=== PATIENT | female | born 1990 | race Caucasian/White ===

== ENCOUNTER 2017-01-03 13:00 | Inpatient (IN) | payer OTHER ==
--- NOTE | ~2017-01-03 | PN ---
Unit #: [id number] #: [id number] Patient: PRETTY CLOUD [id number] [facility] [address] [place] [address] [id number] MR#: [id number] NAME: PRETTY CLOUD ROOM: P204 Age: 26 Sex: F Admission Date: 01/03/2017 : 1990 Attending Physician: Adalberto Pisano M.D. Admitting Physician: Adalberto Pisano M.D. Primary Care Physician: Generic Doctor Not In System [facility] PROGRESS NOTES DATE OF SERVICE: 01/05/2017 SUBJECTIVE Ms. Cloud is a 26-year-old white female, who was seen today and chart was reviewed and case was discussed with the staff. She has been anxious, withdrawn, and rather seclusive to herself has been taking the medications and was tolerating them fairly well with no reported side effects. MENTAL STATUS EXAMINATION Young white female who was casually dressed with a fair personal hygiene, appears to be in no acute distress or discomfort. She was awake and alert on interaction with intact orientation. Her mood was anxious with a congruent affect. She denies any suicidal or homicidal ideations. Her insight and judgment remain slightly impaired. TREATMENT PLAN 1. We will continue on her current medications and treatment protocol. We will monitor her response to medications and make further adjustments as needed. 2. We will continue to follow up. Dictated by... Enrique Cleaning/kierra TD: 01/07/2017 03:08 JOB #: [id number] [facility] PROGRESS NOTES Page 1 of 1 X Adalberto Pisano MD PROGRESS NOTE
--- NOTE | ~2017-01-03 | PA ---
Unit #: [id number] #: [id number] Patient: PRETTY AGUILERA [id number] [facility] [address] [place] [address] [id number] MR#: [id number] NAME: PRETTY AGUILERA ROOM: P212 Age: 26 Sex: F Admission Date: 01/03/2017 : 1990 Date of Assessment: Attending Physician: Adalberto Pisano M.D. Admitting Physician: Adalberto Pisano M.D. Primary Care Physician: Generic Doctor Not In System PSYCHIATRIC ASSESSMENT DATE OF SERVICE 01/03/2017. IDENTIFYING DATA Ms. Aguilera is a 26-year-old single white female, who is a resident of [place], [place], and is known to us from previous encounter, was self-referred to the hospital on a voluntary basis. CHIEF COMPLAINT "I don't want to do this anymore. I need help." HISTORY OF PRESENT ILLNESS Ms. Aguilera is a 26-year-old white female with long history of alcohol dependence, who was self-referred to the hospital stating she has been on a binge and she has relapsed and "I need help. I have to do it. It is unhealthy. I drink a pint or more a day." The patient reports she recently lost her job and that she has completed only through the 8th grade and that she lives with her best friend and reports having no income. The patient also reports that her relationships are strained due to her continued alcohol use and reports that she can be a mean drunk and reports that she feels helpless due to her alcohol use and does report increasing depression, anxiety, irritability, feelings of hopelessness and helplessness, and suicidal ideations and as such, recommendation for inpatient level of care for safety and stabilization was made and the patient was transferred to us. SUBSTANCE ABUSE HISTORY The patient reports history of alcohol dependence and has been drinking since she was 14 years old and currently has been drinking a pint or more of whiskey on a daily basis. PAST PSYCHIATRIC HISTORY The patient has had history of inpatient chemical dependency treatment at [facility] and currently she is not active in any treatment program, is not seeing a psychiatrist, and is not taking any psychotropic medications. PAST MEDICAL HISTORY Psoriasis. ALLERGIES No known medication allergies. Unit #: [id number] #: [id number] Patient: PRETTY AGUILERA CURRENT MEDICATIONS None. PERSONAL AND SOCIAL HISTORY A 26-year-old white female, who reports that she is single, unemployed, and lives with a roommate and has poor social support system. MENTAL STATUS EXAMINATION Young white female who was casually dressed with fair personal hygiene, appears to be in no acute distress or discomfort. She was awake and alert on interaction with intact orientation to time, place, and person. Her mood was anxious and depressed with a congruent affect. Her speech was slow and restricted in content. She denies any suicidal or homicidal ideations and also denies any auditory or visual hallucinations. Her insight and judgment remain significantly impaired. DIAGNOSTIC IMPRESSION Psychiatric: Alcohol dependence, moderate and acute withdrawals; alcohol-induced mood disorder. Medical: None. Stressors: Moderate psychosocial stressors. TREATMENT PLAN 1. The patient has presented with history of mood disorder and substance abuse and will need inpatient hospitalization for safety and stabilization. We will start her back on her home medications. We will monitor response and make further adjustments as needed. 2. Supportive therapy was provided to the patient. ESTIMATED LENGTH OF STAY 5 to 7 days. ABILITY TO HELP SELF Limited. WILLINGNESS TO HELP SELF The patient appears to be willing to help self. STRENGTHS 1. Communicative. 2. Cooperative. PROBLEMS 1. Chronic dysphoric symptoms. 2. Poor social support system. DISCHARGE CRITERIA This will be contingent upon the patient's ability to show resolution of her depression and anxiety as well as her ability to stay safe to herself, particularly after discharge from the hospital. Dictated by... Enrique Cleaning/kierra TD: 01/04/2017 23:30 Unit #: [id number] #: [id number] Patient: PRETTY AGUILERA JOB #: [id number] PSYCHIATRIC ASSESSMENT Page 1 of 1 X Adalberto Pisano MD PSYCHIATRIC ASSESSMENT
--- NOTE | ~2017-01-03 | DS ---
Unit #: [id number] #: [id number] Patient: PRETTY CLOUD [id number] [facility] [address] [place] [address] [id number] I MR#: [id number] NAME: PRETTY CLOUD ROOM: P204 Age: 26 Sex: F Admission Date: 01/03/2017 : 1990 Discharge Date: 01/10/2017 Attending Physician: Adalberto Pisano M.D. Primary Care Physician: Generic Doctor Not In System DISCHARGE SUMMARY JOB NOTE: ADDENDUM ADDENDUM Ms. Cloud was initially scheduled to be discharged on 01/08/2017, however, the patient was seen to be exhibiting some acute psychosis with paranoia and delusional behavior and appears to be almost in delirium tremens kind of face and as such, her discharge planning was cancelled and medications were maintained and once she started feeling better and she was not seen to have any acute psychosis and as such, it was decided she will be discharged home. DISCHARGE MEDICATIONS Effexor XR 75 mg at bedtime for depression and BuSpar 10 mg b.i.d. for anxiety. DISCHARGE CONDITION Stable. PROGNOSIS Fair. Dictated by... Enrique Cleaning/kierra TD: 01/10/2017 22:47 JOB #: [id number] DISCHARGE SUMMARY Page 1 of 1 X Adalberto Pisano MD X DISCHARGE SUMMARY
--- NOTE | ~2017-01-03 | PN ---
Unit #: [id number] #: [id number] Patient: PRETTY CLOUD [id number] [facility] [address] [place] [address] [id number] I MR#: [id number] NAME: PRETTY CLOUD ROOM: P212 Age: 26 Sex: F Admission Date: 01/03/2017 : 1990 Attending Physician: Adalberto Pisano M.D. Admitting Physician: Adalberto Pisano M.D. Primary Care Physician: Generic Doctor Not In System [facility] PROGRESS NOTES DATE 01/06/2017 DISCUSSION Ms. Cloud is a 26-year-old white female who was seen today and chart was reviewed and case was discussed with the staff. She appears to be doing somewhat better though still has been in bed in some distress although she was maintaining a positive attitude and stated that she feels she is coming out of the detox and that she would like the underlying issues particularly the depression and anxiety and panic to be addressed and would like the medications to be initiated tomorrow and is willing to come to the outpatient treatment program. She also informed me that she has a court date coming up tomorrow early in the morning. MENTAL STATUS EXAMINATION Young white female who was casually dressed with fair personal hygiene, appears to be in no acute distress or discomfort. She was awake and alert on interaction with intact orientation. Her mood was anxious with congruent affect. She denies any suicidal or homicidal ideations. Her insight and judgement remains slightly impaired. TREATMENT PLAN 1. We will continue her on her current medications and treatment protocol. We will add Effexor and BuSpar to help with depression and anxiety. 2. We will continue to follow up. Dictated by... Enrique Cleaning/ricardo TD: 01/07/2017 00:53 JOB #: [id number] Unit #: [id number] #: [id number] Patient: PRETTY CLOUD [facility] PROGRESS NOTES Page 1 of 1 X Adalberto Pisano MD X PROGRESS NOTE
--- NOTE | ~2017-01-03 | DS ---
Unit #: [id number] #: [id number] Patient: PRETTY CLOUD [id number] [facility] [address] [place] [address] [id number] MR#: [id number] NAME: PRETTY CLOUD. ROOM: P204 Age: 26 Sex: F Admission Date: 01/03/2017 : 1990 Discharge Date: 01/07/2017 Attending Physician: Adalberto Pisano M.D. Primary Care Physician: Generic Doctor Not In System DISCHARGE SUMMARY IDENTIFYING DATA Ms. Cloud is a 26-year-old single white female who is a resident of [place], [place] and is known to us from previous encounters and was self-referred to the hospital on a voluntary basis. DISCHARGE DIAGNOSES Psychiatric: Alcohol dependence, moderate and acute withdrawals; alcohol-induced mood disorder. Medical: None. Stressors: Moderate psychosocial stressors. HISTORY OF PRESENT ILLNESS Please see initial psychiatric evaluation for details. PAST PSYCHIATRIC HISTORY Please see initial psychiatric evaluation for details. PAST MEDICAL HISTORY Please see initial psychiatric evaluation for details. HOSPITAL COURSE The [facility] and was oriented to the hospital environment. Routine p.r.n. medications were initiated, and she was started back on her home medications and alcohol detox protocol was initiated and she was closely monitored. She was initially having complicated detox and was vomiting and was seclusive to herself and unable to function, though she was able to come out of the detox without any complication and was expressing significant anxiety and depression and medications to be adjusted, and Effexor and BuSpar were initiated to help with her mood and she was closely monitored. She was taking the medications regularly and was tolerating them fairly well and was able to show a decent therapeutic response, and as such, it was decided that she will be discharged home and will continue treatment on an outpatient basis. DISCHARGE MEDICATIONS Effexor XR 75 mg at bedtime for depression and BuSpar 10 mg b.i.d. for anxiety. DISCHARGE CONDITION Stable. PROGNOSIS Fair. Unit #: [id number] #: [id number] Patient: PRETTY CLOUD Dictated by... Adalberto Pisano M.D. IAA/modl TD: 01/07/2017 06:35 JOB #: [id number] DISCHARGE SUMMARY Page 1 of 1 X Adalberto Pisano MD DISCHARGE SUMMARY
--- NOTE | ~2017-01-03 | PN ---
Unit #: [id number] #: [id number] Patient: PRETTY CLOUD [id number] [facility] [address] [place] [address] [id number] I MR#: [id number] NAME: PRETTY CLOUD ROOM: P212 Age: 26 Sex: F Admission Date: 01/03/2017 : 1990 Attending Physician: Adalberto Pisano M.D. Admitting Physician: Adalberto Pisano M.D. Primary Care Physician: Generic Doctor Not In System [facility] PROGRESS NOTES DATE OF SERVICE: 01/04/2017 SUBJECTIVE Ms. Cloud is a 26-year-old white female, who was seen today and chart was reviewed and case was discussed with the staff. She was seen to be anxious, withdrawn, taking the medications and was tolerating them fairly well with no reported side effects. MENTAL STATUS EXAMINATION Young white female, who was casually dressed with fair personal hygiene, appears to be in no acute distress or discomfort. She was awake and alert with intact orientation. Her mood was anxious with congruent affect. She denies any suicidal or homicidal ideations. Her insight and judgment remain slightly impaired. TREATMENT PLAN 1. We will continue her on her current treatment protocol. We will monitor her response and maintain on detox protocol. 2. We will continue to follow up. Dictated by... Enrique Cleaning/kierra TD: 01/04/2017 23:32 JOB #: [id number] [facility] PROGRESS NOTES Page 1 of 1 X Adalberto Pisano MD PROGRESS NOTE
--- NOTE | ~2017-01-03 | PN ---
Unit #: [id number] #: [id number] Patient: PRETTY CLOUD [id number] [facility] [address] [place] [address] [id number] I MR#: [id number] NAME: PRETTY CLOUD ROOM: P204 Age: 26 Sex: F Admission Date: 01/03/2017 : 1990 Attending Physician: Adalberto Pisano M.D. Admitting Physician: Adalberto Pisano M.D. Primary Care Physician: Generic Doctor Not In System [facility] PROGRESS NOTES DATE 01/09/2017 DISCUSSION Ms. Cloud is a 26-year-old white female who was seen today and chart was reviewed and case was discussed with the staff. She has been anxious, withdrawn and seclusive to herself. Meanwhile, she has been cooperative with treatment recommendations and has been taking the medications and tolerating them fairly well with no reported side effects. MENTAL STATUS EXAMINATION Young white female who was casually dressed with fair personal hygiene, appears to be in no acute distress or discomfort. She was awake and alert on interaction with intact orientation. Her mood was anxious with congruent affect. She denies any suicidal or homicidal ideations. Her thought processes were disorganized with some looseness of associations. Her insight and judgement remains slightly impaired. TREATMENT PLAN 1. We will continue her on her current medications and treatment protocol. We will monitor her response to the medication and make further adjustments as needed. 2. We will continue to follow up. Dictated by... Enrique Cleaning/ricardo TD: 01/12/2017 03:13 JOB #: [id number] Unit #: [id number] #: [id number] Patient: PRETTY CLOUD [facility] PROGRESS NOTES Page 1 of 1 X Adalberto Pisano MD PROGRESS NOTE
--- NOTE | ~2017-01-03 | CR141 ---
[facility] A Service of [facility] RADIOLOGY TEXT RESULTS PATIENT: PRETTY CLOUD LOCATION: S : [birth year] UNIT #: [id number] AGE: [address]: Adalberto Pisano MD SEX: F ORDER DR: [id number] [facility] [address]. [place], [place] [address] [id number] MR#: [id number] Acc #: [id number] NAME: PRETTY CLOUD : 1990 SEX: F STUDY DATE/TIME: 01/04/2017 15:32 UNIT: [facility] ROOM: [facility] STUDY DESCRIPTION: CR Hand Min 3 Views Lt Attending Physician: Adalberto Pisano M.D. Ordering Physician: Adalberto Pisano M.D. Primary Care Physician: Generic Doctor Not In System MEDICAL IMAGING REPORT This report is preliminary unless electronic signature is present EXAM Left hand series 01/04/2017 HISTORY Left palm, thumb edema, bruise, pain Thursday- fell over, palm and along first metacarpal pain. FINDINGS AP lateral and oblique radiographs of the left hand are presented. Poor quality study. Digits are in flexion on all views, and there is a significant digital overlap on the all views. No traumatic fracture or malalignment is seen. No soft tissue defect, subcutaneous air or radiodense foreign body. There appears to be some generalized soft tissue swelling in the space between first and second digits. Correlate with exam and mechanism of injury. Clinical followup to resolution recommended. Dictated by... Brock Ortiz M.D. THIS IS AN ELECTRONICALLY VERIFIED REPORT Brock Ortiz M.D. at 01/05/2017 8:13 AM Gold TD: 01/04/2017 23:52 JOB #: [id number] MEDICAL IMAGING REPORT Page 1 of 1 COPY
--- NOTE | ~2017-01-03 | PN ---
Unit #: [id number] #: [id number] Patient: PRETTY CLOUD [id number] [facility] [address] [place] [address] [id number] I MR#: [id number] NAME: PRETTY CLOUD ROOM: P204 Age: 26 Sex: F Admission Date: 01/03/2017 : 1990 Attending Physician: Adalberto Pisano M.D. Admitting Physician: Adalberto Pisano M.D. Primary Care Physician: Generic Doctor Not In System [facility] PROGRESS NOTES DATE January 08, 2017 DISCUSSION Ms. Cloud is a 26-year-old white female, who was seen today and chart was reviewed and the case was discussed with the staff. The patient has been exhibiting bizarre behavior and had a rough day yesterday with acute psychosis and hallucinations, and paranoid delusions, and a p.r.n. Thorazine was given. Staff reports that they did not see help very much, the patient still remains guarded and seclusive to herself, and was not very opened up and talking to me very much. MENTAL STATUS EXAMINATION Young white female, who was casually dressed with fair personal hygiene and appears to be in no acute distress or discomfort. She was awake and alert with impaired attention and concentration. Her mood was anxious with a congruent affect. Her speech is slow and tangential. Her thought processes are disorganized with some looseness of associations and flight of ideas and paranoid ideations, and delusional behavior. Her insight and judgment remain significantly impaired. TREATMENT PLAN 1. We will continue her on her current medications and treatment protocol, and will monitor her response to the medications, and make further adjustments as needed. 2. We will continue to followup. Dictated by... Enrique Cleaning/krista TD: 01/09/2017 09:57 JOB #: [id number] Unit #: [id number] #: [id number] Patient: PRETTY CLOUD [facility] PROGRESS NOTES Page 1 of 1 X Adalberto Pisano MD X PROGRESS NOTE
--- NOTE | ~2017-01-03 | HP ---
Unit #: [id number] #: [id number] Patient: PRETTY CLOUD [id number] [place] [address] [id number] I MR#: [id number] NAME: PRETTY CLOUD ROOM: P212 Age: Sex: F Admission Date: 01/03/2017 : 1990 Attending Physician: Adalberto Pisano M.D. Admitting Physician: Adalberto Pisano M.D. Primary Care Physician: Generic Doctor Not In System HISTORY AND PHYSICAL HISTORY OF PRESENT ILLNESS The patient is a 26-year-old female, admitted to [address] [place] [address] on 01/03/2017 to detox from alcohol. PAST MEDICAL HISTORY Psoriasis. PAST SURGICAL HISTORY Appendectomy. SOCIAL HISTORY She is unemployed. She lives with a friend. She drinks a pint of whiskey per day. FAMILY MEDICAL HISTORY Noncontributory. ALLERGIES No known drug allergies. CURRENT MEDICATIONS The patient is not on any home medications. FAMILY HISTORY REVIEW OF SYSTEMS PHYSICAL EXAMINATION GENERAL: VITAL SIGNS: WEIGHT: SKIN: Warm and dry without rash or lesion. HEENT: Normocephalic. TMs not viewed. Oral and nasal passages clear. Conjunctivae clear. PERRLA. EOMs intact. NECK: Supple without lymphadenopathy or thyromegaly. HEART: Regular rate and rhythm without murmur. LUNGS: Clear. ABDOMEN: Soft, nontender. : Not done. EXTREMITIES: No evidence of cyanosis, clubbing or edema. Moves all without focal deficit. NEUROLOGICAL: Grossly within normal limits. Cranial Nerves: II: Visual hansen are intact. III, IV AND : Extraocular movements are intact. Pupils are equal, round and reactive to Unit #: [id number] #: [id number] Patient: PRETTY CLOUD light. V: Facial sensation is grossly normal. VII: Facial movements and expression are normal. VIII: Auditory acuity grossly intact. IX, X: Uvula is midline. Phonation is normal. XI: Patient shrugs shoulders and turns head normally. XII: Tongue protrudes in the midline. Sensory and Motor Function: Sensory and motor sensation is grossly normal. Motor: moves all extremities well. Coordination: Gait is normal. Deep Tendon Reflexes: Intact. MEDICAL ASSESSMENT AND PLAN RECOMMENDATIONS 1. Psychiatric, per psychiatrist. 2. I see no contraindications to participating in facility's activities. MEDICAL PROGNOSIS Good. MEDICAL CONDITION Stable. Dictated by... Lyric Holman TD: 01/05/2017 05:59 JOB #: [id number] ADDENDUM REPORT REVIEW OF SYSTEMS CONSTITUTIONAL: No fever or chills. HEENT: Denies any sore throat, ear pain or runny nose. CARDIOVASCULAR: Denies chest pain, irregular heart rhythm or palpitations. CHEST: Denies shortness of breath or cough. No hemoptysis. GASTROINTESTINAL: Denies nausea, vomiting, diarrhea or chronic constipation. ENDOCRINE: Denies history of increased thirst or urination. No recent significant weight loss or gain. GENITOURINARY: Denies dysuria, frequency, or hematuria. SKIN: Denies any rashes. HEMATOLOGIC: Denies history of increased bleeding or bruising. MUSCULOSKELETAL: Denies any hot, swollen joints. No generalized muscle pain. NEUROLOGIC: Denies problems with vision or speech. No frequent, severe headaches. No numbness, tingling or weakness in any extremities. Denies loss of bladder or bowel control. PHYSICAL EXAMINATION Unit #: [id number] #: [id number] Patient: PRETTY CLOUD GENERAL: She is awake, alert, and oriented and in no acute distress. VITAL SIGNS: Temperature 98.2, heart rate 106, respirations 17, blood pressure 134/84. HEIGHT: 5 feet 2 inches. WEIGHT: 100 pounds. SKIN: Warm and dry without rash or lesion. HEENT: Normocephalic. TMs not viewed. Oral and nasal passages clear. Conjunctivae clear. PERRLA. EOMs intact. NECK: Supple without lymphadenopathy or thyromegaly. HEART: Regular rate and rhythm without murmur. LUNGS: Clear. ABDOMEN: Soft, nontender. : Not done. EXTREMITIES: No evidence of cyanosis, clubbing or edema. Moves all without focal deficit. NEUROLOGICAL: Grossly within normal limits. Cranial Nerves: II: Visual hansen are intact. III, IV AND : Extraocular movements are intact. Pupils are equal, round and reactive to light. V: Facial sensation is grossly normal. VII: Facial movements and expression are normal. VIII: Auditory acuity grossly intact. IX, X: Uvula is midline. Phonation is normal. XI: Patient shrugs shoulders and turns head normally. XII: Tongue protrudes in the midline. Sensory and Motor Function: Sensory and motor sensation is grossly normal. Motor: moves all extremities well. Coordination: Gait is normal. Deep Tendon Reflexes: Intact. IMPRESSION 1. Psychiatric admission. 2. Psoriasis. 3. Alcohol dependence. RECOMMENDATIONS Psychiatric, per psychiatrist. MEDICAL No contraindications to participating in facility's activities. MEDICAL PROGNOSIS Good. MEDICAL CONDITION Stable. Dictated by... Lyric Holman/krista TD: 01/05/2017 06:04 JOB #: [id number] Unit #: [id number] #: [id number] Patient: PRETTY CLOUD Jenny HISTORY AND PHYSICAL Page 1 of 1 X GERALDO MIN APRN HISTORY AND PHYSICAL
--- NOTE | ~2017-01-03 | A ---
[facility] Nutrition Therapy DATE: 01/05/17 Patient: PRETTY CLOUD Physician: DEEJAYF Address: [facility] Room/Bed: [address], Zip: [place] [address] Admit Date: 01/03/17 Date of : 90 Height: 5 1 Weight: 94 43.83013 NUTRITIONAL ASSESSMENT: REASON: LOW BMI (17.9) PATIENT ADMITTED FOR ETOH DETOX PMH: PSORIASIS Anthropometrics: HT: 61", WT: 95#, BMI: 17.9, %IBW: 90 Labs: 01/03/17- GLU: 69, ALB: 5.2 Meds: DETOX PROTOCOL Assessment: PATIENT IS A 26 Y/O FEMALE ADMITTED FOR ETOH DETOX. PATIENT IS CURRENTLY UNEMPLOYED, LIVES WITH HER FRIEND, AND SHE DRINKS A PINT OF ETOH DAILY. PATIENT HAS A HX OF INPATIENT CHEMICAL DEPENDENCY TREATMENT. PATIENT STATED A POOR APPETITE WITH AN UNKNOWN AMOUNT OF WEIGHT LOSS. NURSING REPORTS GOOD PO INTAKES. PATIENT HAD SOME VOMITING UPON ADMIT BUT HAS NO CURRENT C/O N/V. PATIENT IS NOTED TO HAVE SOME EDEMA TO THE L-HAND, WITH NO FURTHER SKIN ISSUES NOTED ATT. PATIENT IS ON A REGULAR DIET AND SHE IS 90% OF HER IBW, WHICH IS WITHIN A HEALTHY RANGE. PATIENT DID NOT SCORE ANY NUTRITIONAL RISK POINTS. THIS RD SUSPECTS WEIGHT AND APPETITE WILL STABILIZE FOLLOWING DETOX. Dx: INADEQUATE NUTRIENT INTAKE R/T CURRENT CONDITION, ETOH USE AEB LOW BMI, DECREASED APPETITE Intervention: REGULAR DIET, MEDS PER MD, DETOX, PSYCH Monitoring, Evaluation and Goals: 1. ADEQUATE PO INTAKES >50% OF MEALS 2. PREVENT, CORRECT MICRO/MACRO NUTRIENT DEFICIENCIES 3. PROMOTE A STEADY WEIGHT GAIN TOWARDS A HEALTHY BMI OF 19-25 MONITOR: WEIGHTS, LABS, PO/FLUID INTAKES Recommendations: 1. CONTINUE REGULAR DIET TOLERATED. OFFER SNACKS BETWEEN MEALS. IF PATIENT HAS C/O HUNGER PLEASE SEND ORDER FOR LARGE PORTION ENTREES AND RD WILL APPROVE 2. ENCOURAGE ADEQUATE PO AND FLUID INTAKES 3. OBTAIN WEIGHTS ROUTINELY (EVERY 3-4 DAYS) TO ENSURE PATIENT RECEIVES ADEQUATE NUTRIENT INTAKE [facility] Nutrition Therapy DATE: 01/05/17 Patient: PRETTY CLOUD Physician: UMA Address: [facility] Room/Bed: [address], Zip: [place] [address] Admit Date: 01/03/17 Date of : 90 Height: 5 1 Weight: 94 43.02625 4. IF PO INTAKES FALL BELOW 50% OF MEALS PLEASE ORDER ENSURE BID TO PROMOTE ADEQUATE KCAL AND PROTEIN INTAKES RD TO F/U PER PROTOCOL AND PRN R/T PATIENT MILDLY COMPROMISED Respectfully, EDDIE CHAUDHARY, RD, LD Food and Nutritional Services [facility] cc: client file
[2017-01-03 19:29] LABS: BASOPHIL# 0.1 X10e3 (0-0.3); BASOPHIL% 0.9 % (0-2.5); DIFF IND NO; HEMATOCRIT 40.2 % (35.0-45.0); HEMOGLOBIN 13.3 gm/dL (12.0-16.0); LYMPHOCYTE# 1.2 X10e3 (1.0-3.5); LYMPHOCYTE% 13.3 % (17.0-45.0); MEAN CORPUSCULAR HEMOGLOBIN 31.5 PG (28-34); MEAN CORPUSCULAR HGB CONC 33.1 g/dL (30-36); MEAN PLATELET VOLUME 8.4 FL (6.5-11.5); MONOCYTE# 0.3 X10e3 (0-1.0); NEUTROPHIL# 7.4 X10e3 (1.5-7.1); NEUTROPHIL% 82.8 % (40-75); PLATELET COUNT 326 X10e3 (140-420); RED BLOOD COUNT 4.23 X10e (3.90-5.30); RED CELL DISTRIBUTION WIDTH 14.1 % (11.0-15.5)
[2017-01-03 19:55] LABS: ALBUMIN SERUM 5.2 g/dL (3.5-5.0); BILIRUBIN,TOTAL 0.8 mg/dL (0.2-2.0); BUN/CREATININE RATIO 18.57; CALCIUM SERUM 9.3 mg/dL (8.4-10.2); CREATININE SERUM 0.7 mg/dL (0.6-1.4); GLOM FILT RATE Estimated 119.6 mL/min (>60); PROTEIN TOTAL SERUM 8.7 g/dL (6.0-8.3)
== END 2017-01-10 11:27 | disposition home or self-care (01) | DRG 897 ==
LOC: P2S 13:33
PROVIDERS: Psychiatry & Neurology Psychiatry
PROC: HZ2ZZZZ Detoxification Services for Substance Abuse Treatment (ICD-10-PCS; principal; 2017-01-03)
DX: F10.239 Alcohol dependence with withdrawal, unspecified (principal); F10.24 Alcohol dependence with alcohol-induced mood disorder; L40.9 Psoriasis, unspecified
CPT/HCPCS: 73130; 80053; 84703; 85025; 86592; J2550

== ENCOUNTER 2017-03-25 06:00 | Inpatient (IN) | payer OTHER ==
[~2017-03-25] VITALS: Ht 157.5 cm; Wt 43.1 kg
--- NOTE | ~2017-03-25 | PN ---
Unit #: [id number] #: [id number] Patient: PRETTY CLOUD [id number] [facility] [address] [place] [address] [id number] I MR#: [id number] NAME: PRETTY CLOUD ROOM: [facility] Age: 26 Sex: F Admission Date: 03/25/2017 : 1990 Attending Physician: Adalberto Pisano M.D. Admitting Physician: Adalberto Pisano M.D. Primary Care Physician: Generic Doctor Not In System [facility] PROGRESS NOTES DATE OF SERVICE 03/27/2017 DISCUSSION Ms. Cloud is a 26-year-old female who was seen today. Chart was reviewed and case was discussed with staff. She has been anxious, withdrawn, but has not shown any agitation, irritability, or behavioral problems and has been cooperative with treatment recommendations and has been taking the medications and tolerating them fairly well with no reported side effects. MENTAL STATUS EXAMINATION Young female who is casually dressed with fair personal hygiene, appears to be in no acute distress or discomfort. The patient was awake and alert on interaction with intact orientation. Her mood is anxious with congruent affect. She denies any suicidal or homicidal ideations. Her insight and judgment remain slightly impaired. TREATMENT PLAN 1. We will continue her on her current medications and treatment protocol. We will monitor her response to the medications and make further adjustments as needed. 2. We will continue to follow up. Dictated by... Adalberto Pisano M.D. IAA/karleeg TD: 03/27/2017 12:06 JOB #: [id number] Unit #: [id number] #: [id number] Patient: PRETTY CLOUD [facility] PROGRESS NOTES Page 1 of 1 X Adalberto Pisano MD PROGRESS NOTE
--- NOTE | ~2017-03-25 | HP ---
Unit #: [id number] #: [id number] Patient: ANA CLOUD [id number] [place] [address] [id number] I MR#: [id number] NAME: ANA CLOUD ROOM: P210 Age: 26 Sex: F Admission Date: 03/25/2017 : 1990 Attending Physician: Adalberto Pisano M.D. Admitting Physician: Adalberto Pisano M.D. Primary Care Physician: Generic Doctor Not In System HISTORY AND PHYSICAL HISTORY OF PRESENT ILLNESS Ana is a 26 year old admitted to [address] [place] [address] because of her abuse of alcohol. She has had other admissions to this facility for the same. PAST MEDICAL HISTORY 1. Long history of alcohol abuse. 2. History of withdrawal seizures. 3. Psoriasis. PAST SURGICAL HISTORY Appendectomy. ALLERGIES No known drug allergies. SOCIAL HISTORY She does not smoke. Drinks at least half pint of liquor on a daily basis. Denies illicit drug use. FAMILY HISTORY Medically noncontributory. REVIEW OF SYSTEMS CONSTITUTIONAL: No fever or chills. HEENT: Denies any sore throat, ear pain or runny nose. CARDIOVASCULAR: Denies chest pain, irregular heart rhythm or palpitations. CHEST: Denies shortness of breath or cough. No hemoptysis. GASTROINTESTINAL: Denies nausea, vomiting, diarrhea or chronic constipation. ENDOCRINE: Denies history of increased thirst or urination. No recent significant weight loss or gain. GENITOURINARY: Denies dysuria, frequency, or hematuria. SKIN: Denies any rashes. HEMATOLOGIC: Denies history of increased bleeding or bruising. MUSCULOSKELETAL: Denies any hot, swollen joints. No generalized muscle pain. NEUROLOGIC: Denies problems with vision or speech. No frequent, severe headaches. No numbness, tingling or weakness in any extremities. Denies loss of bladder or bowel control. CURRENT MEDICATIONS 1. Detox protocol. 2. Prozac 20 mg daily. Unit #: [id number] #: [id number] Patient: ANA CLOUD PHYSICAL EXAMINATION GENERAL: Alert, well-nourished, in no apparent distress. VITAL SIGNS: Blood pressure 140/94, heart rate 80, respirations 16, temperature 98.6. WEIGHT: 95 pounds. HEIGHT: 5 feet 2 inches. SKIN: Warm and dry without rash or lesion. HEENT: Normocephalic. TMs not viewed. Oral and nasal passages clear. Conjunctivae clear. PERRLA. EOMs intact. NECK: Supple without lymphadenopathy or thyromegaly. HEART: Regular rate and rhythm without murmur. LUNGS: Clear. ABDOMEN: Soft, nontender. : Not done. EXTREMITIES: No evidence of cyanosis, clubbing or edema. Moves all without focal deficit. NEUROLOGICAL: Grossly within normal limits. Cranial Nerves: II: Visual hansen are intact. III, IV AND : Extraocular movements are intact. Pupils are equal, round and reactive to light. V: Facial sensation is grossly normal. VII: Facial movements and expression are normal. VIII: Auditory acuity grossly intact. IX, X: Uvula is midline. Phonation is normal. XI: Patient shrugs shoulders and turns head normally. XII: Tongue protrudes in the midline. Sensory and Motor Function: Sensory and motor sensation is grossly normal. Motor: moves all extremities well. Coordination: Gait is normal. Deep Tendon Reflexes: Intact. IMPRESSION Psychiatric admission. RECOMMENDATIONS PSYCHIATRIC: Per psychiatrist. MEDICAL: See no contraindication to participate in facility's activities. MEDICAL PROGNOSIS Good. MEDICAL CONDITION Stable. Dictated by... Darshan LoeraAIsa-Yariel. for Enrique Almeida/mario TD: 03/25/2017 17:49 JOB #: [id number] Unit #: [id number] #: [id number] Patient: ANA CLOUD A HISTORY AND PHYSICAL Page 1 of 1 X Shelbie Coombs HISTORY AND PHYSICAL
--- NOTE | ~2017-03-25 | A ---
[facility] Nutrition Therapy DATE: 03/26/17 Patient: PRETTY NAIDUJAS Physician: UMA Address: [address] [place] [address] Room/Bed: [address], Zip: [place] [id number] Admit Date: 03/25/17 Date of : 90 Height: 5 2 Weight: 94 43.37075 NUTRITIONAL ASSESSMENT: REASON: LOW BMI (17.4-17.9), UNINTENTIONAL WEIGHT LOSS PATIENT ADMITTED FOR ETOH DETOX. PMH: HX OF WITHDRAWAL SEIZURES, PSORIASIS Anthropometrics: HT: 61-62", WT: 95#, BMI: 17.4-17.9, %IBW: 86-90 Labs: 03/26/17- GLU: 151, ALL OTHER NUTRITIONAL LABS WNL Meds: PROZAC, VISTARIL, MVI, VIT B COMPLEX, DETOX PROTOCOL Assessment: PATIENT IS A 26 Y/O FEMALE ADMITTED FOR ETOH DETOX. PATIENT IS CURRENTLY UNEMPLOYED, LIVES IN A HOTEL, DRINKS ETOH DAILY FOR LAST 2 YEARS, AND HER TOX SCREEN WAS POSITIVE FOR MARIJUANA. PER NEEDS ASSESSMENT PATIENT STATED A POOR APPETITE WITH A 5# WEIGHT LOSS OVER LAST SEVERAL WEEKS, AND SHE HAS NOT BEEN SLEEPING (3HRS/NIGHT). CURRENT PO INTAKES ARE NOT AVAILABLE ATT. WEIGHT HX PER MEDITECH SHOWED NO WEIGHT CHANGES FROM LAST ADMIT 2 MONTHS AGO. WILL REQUEST NURSING TO OBTAIN A NEW WEIGHT. THERE ARE NO SKIN ISSUES NOTED ATT. PATIENT IS ACTIVELY DETOXING. SHE IS ON A REGULAR DIET WITH NO CAFFEINE. CURRENT PSYCH MEDS MAY CAUSE WEIGHT AND APPETITE FLUCTUATIONS. Dx: INADEQUATE NUTRIENT INTAKE R/T CURRENT CONDITIONS, ETOH ABUSE AEB LOW BMI, SELF-REPORTED WEIGHT LOSS, NUTRITIONAL RISK POINT Intervention: REGULAR DIET, NO CAFFEINE, MEDS PER MD, DETOX, PSYCH Monitoring, Evaluation and Goals: 1. ADEQUATE PO INTAKES >50-75% OF MEALS 2. LABS; PREVENT, CORRECT MICRO/MACRO NUTRIENT DEFICIENCIES 3. WEIGHT; PROMOTE STEADY WEIGHT GAIN TOWARDS A HEALTHY BMI OF 19-25, PREVENT FURTHER WEIGHT LOSS MONITOR: WEIGHTS, LABS, PO/FLUID INTAKES Recommendations: 1. CONTINUE REGULAR DIET WITH NO CAFFEINE TOLERATED. OFFER SNACKS BETWEEN MEALS. IF PATIENT HAS C/O HUNGER PLEASE ORDER LARGE PORTION ENTREES AND RD WILL APPROVE 2. ENCOURAGE ADEQUATE PO AND FLUID INTAKES 3. RE-WEIGH PATIENT. CONTINUE TO OBTAIN WEIGHTS ROUTINELY (EVERY 3-4 DAYS) [facility] Nutrition Therapy DATE: 03/26/17 Patient: PRETTY CLOUD Physician: UMA Address: [address] [place] [address] Room/Bed: [id number], Zip: [place] [address] Admit Date: 03/25/17 Date of : 90 Height: 5 2 Weight: 94 43.67394 4. IF PO INTAKES ARE BELOW 50% OF MEALS PLEASE ORDER ENSURE BID TO PROMOTE ADEQUATE KCAL AND PROTEIN INTAKES. RD TO F/U PER PROTOCOL AND PRN R/T PATIENT AT MILD NUTRITION RISK Respectfully, EDDIE CHAUDHARY, RD, LD Food and Nutritional Services [facility] cc: client file
--- NOTE | ~2017-03-25 | PA ---
Unit #: [id number] #: [id number] Patient: PRETTY CLOUD [id number] [facility] [address] [place] [address] [id number] MR#: [id number] NAME: PRETTY CLOUD ROOM: P210 Age: 26 Sex: F Admission Date: 03/25/2017 : 1990 Date of Assessment: 03/26/2017 Attending Physician: Adalberto Pisano M.D. Admitting Physician: Adalberto Pisano M.D. Primary Care Physician: Generic Doctor Not In System PSYCHIATRIC ASSESSMENT DATE OF SERVICE 03/25/2017. IDENTIFYING DATA Ms. Cloud is a 26-year-old single female, who is a resident of [place], [place], and is known to me from previous encounter and was self-referred to the hospital on a voluntary basis. CHIEF COMPLAINT "I'm here for alcohol detox." HISTORY OF PRESENT ILLNESS Ms. Cloud is a 26-year-old female with dual diagnosis of mood disorder and alcohol dependence, who came to the hospital stating that she is here for alcohol detox and "I drank anywhere from a pint to half of fifth a day for the past 2 years. I stopped for a month around December when I came here, I did not go to outpatient or to the meetings and I relapsed around the beginning of February when I didn't really have any support. Last, I had a drink yesterday around 9 in the morning. I'm shaking, I'm tingling, I'm seeing spots, I've body aches, I've vomited several times, I'm sweating, I've diarrhea, I've not been sleeping a lot and I can't eat anything, and I've some depression and anxiety, and I've this panic attacks and I've no motivation to do anything, and I've motivation to get sober because I don't want to from my drinking." She does report depression, anxiety, restlessness, feelings of hopelessness and helplessness, but denies any suicidal ideations, intent, or plan. SUBSTANCE ABUSE HISTORY The patient reports history of alcohol dependence stating that she has been drinking since she was 14 years old and currently has been drinking from a pint to half of fifth a day. The patient denies any other substance abuse issues. PAST PSYCHIATRIC HISTORY The patient has had history of inpatient chemical dependency treatment under my care at [facility] in 12/2016, but is currently not active in any treatment program, is not seeing a psychiatrist, and is supposed to be on Prozac and Vistaril, but apparently has been noncompliant with medications. PAST MEDICAL HISTORY No acute or chronic medical illnesses. Unit #: [id number] #: [id number] Patient: PRETTY CLOUD ALLERGIES No known medication allergies. PERSONAL AND SOCIAL HISTORY A 26-year-old female, who reports that she is single, unemployed, and lives alone and has poor social support system. MENTAL STATUS EXAMINATION Young female who was casually dressed with fair personal hygiene, appears to be in no acute distress or discomfort. She was awake and alert on interaction with intact orientation to time, place, and person. Her mood was anxious and depressed with a congruent affect. Her speech was slow and restricted in content. She reports having suicidal ideations, but denies any homicidal ideations, and also denies any auditory or visual hallucinations. Her insight and judgment remain significantly impaired. DIAGNOSTIC IMPRESSION Psychiatric: Alcohol dependence, moderate and acute withdrawals; alcohol-induced mood disorder. Medical: None. Stressors: Moderate psychosocial stressors. TREATMENT PLAN 1. The patient has presented with history of mood disorder, and has been decompensating and will need inpatient hospitalization for safety and stabilization. We will start her back on her home medications. We will adjust the medications and monitor response. 2. Supportive therapy was provided to the patient. 3. Safe, structured, and nourishing environment will be provided. ESTIMATED LENGTH OF STAY 4 to 5 days. ABILITY TO HELP SELF Limited. WILLINGNESS TO HELP SELF The patient appears to be willing to help self. STRENGTHS 1. Communicative. 2. Cooperative. PROBLEMS 1. Chronic dysphoric symptoms. 2. Chronic chemical dependency. 3. Poor social support system. DISCHARGE CRITERIA This will be contingent upon the patient's ability to go through detox without having any significant withdrawal symptoms as well as her ability to stay safe to herself, particularly after discharge from the hospital. Dictated by... Adalberto Pisano M.D. IAA/modl Unit #: [id number] #: [id number] Patient: PRETTY LCOUD TD: 03/26/2017 08:00 JOB #: [id number] PSYCHIATRIC ASSESSMENT Page 1 of 1 X Adalberto Pisano MD PSYCHIATRIC ASSESSMENT
--- NOTE | ~2017-03-25 | PN ---
Unit #: [id number] #: [id number] Patient: PRETTY CLOUD [id number] [facility] [address] [place] [address] [id number] I MR#: [id number] NAME: PRETTY CLOUD ROOM: P210 Age: 26 Sex: F Admission Date: 03/25/2017 : 1990 Attending Physician: Adalberto Pisano M.D. Admitting Physician: Adalberto Pisano M.D. Primary Care Physician: Generic Doctor Not In System [facility] PROGRESS NOTES DATE OF SERVICE: 03/30/2017 SUBJECTIVE Ms. Cloud is a 26-year-old female, who was seen today, chart was reviewed and case was discussed with the staff. She has been doing fairly well and has been showing improvement in her mood, anxiety, and detox symptoms and has been cooperative with treatment recommendations. MENTAL STATUS EXAMINATION Young female, who was casually dressed with fair personal hygiene, appears to be in no acute distress or discomfort. She was awake and alert on interaction with intact orientation. Her mood was anxious with a congruent affect. She denies any suicidal or homicidal ideation. Her insight and judgement remain slightly impaired. TREATMENT PLAN 1. We will continue her on her current medications and treatment protocol. We will monitor her response to the medications and make further adjustment as needed. 2. We will continue to follow up. Dictated by... Adalberto Pisano M.D. LIZ/jackiel TD: 04/01/2017 03:30 JOB #: [id number] [facility] PROGRESS NOTES Page 1 of 1 X Adalberto Pisano MD PROGRESS NOTE
--- NOTE | ~2017-03-25 | PN ---
Unit #: [id number] #: [id number] Patient: PRETTY CLOUD [id number] [facility] [address] [place] [address] [id number] MR#: [id number] NAME: PRETTY CLOUD ROOM: P210 Age: 26 Sex: F Admission Date: 03/25/2017 : 1990 Attending Physician: Adalberto Pisano M.D. Admitting Physician: Adalberto Pisano M.D. Primary Care Physician: Generic Doctor Not In System [facility] PROGRESS NOTES DATE 03/28/2017 DISCUSSION Ms. Cloud is a 26-year-old white female who was seen today and chart was reviewed and case was discussed with the staff. She has been anxious, withdrawn and rather seclusive to herself. Meanwhile, she has been cooperative with treatment recommendations and has been taking medications and tolerating them fairly well. MENTAL STATUS EXAMINATION Young female who was casually dressed with fair personal hygiene and appears to be in no acute distress or discomfort. She was awake and alert on interaction with intact orientation. Her mood was anxious with congruent affect. She denies any suicidal or homicidal ideation. Her insight and judgement remains slightly impaired. TREATMENT PLAN 1. Will continue on current treatment protocol. Will adjust her medications and add trazodone to help her with sleep and increase her Vistaril frequency to help better with the anxiety. 2. Will continue to follow up. Dictated by... Enrique Cleaning/mario TD: 03/28/2017 18:47 JOB #: [id number] Unit #: [id number] #: [id number] Patient: PRETTY CLOUD [facility] PROGRESS NOTES Page 1 of 1 X Adalberto Pisano MD PROGRESS NOTE
--- NOTE | ~2017-03-25 | PN ---
Unit #: [id number] #: [id number] Patient: PRETTY CLOUD [id number] [facility] [address] [place] [address] [id number] I MR#: [id number] NAME: PRETTY CLOUD ROOM: P210 Age: 26 Sex: F Admission Date: 03/25/2017 : 1990 Attending Physician: Adalberto Pisano M.D. Admitting Physician: Adalberto Pisano M.D. Primary Care Physician: Generic Doctor Not In System [facility] PROGRESS NOTES DATE OF SERVICE 03/29/2017 DISCUSSION Ms. Cloud is a 26-year-old female who was seen today. Chart was reviewed and case was discussed with the staff. She has been doing much better and has been calm and cooperative, and appears to be coming out of the detox without any complication. She has been taking the medications and tolerating them fairly well. MENTAL STATUS EXAMINATION Young white female who is casually dressed with fair personal hygiene, appears to be in no acute distress or discomfort. The patient was awake and alert with intact orientation. Her mood is anxious with congruent affect. She denies any suicidal or homicidal ideation. Her insight and judgment remain slightly impaired. TREATMENT PLAN We will continue her on her current medications and treatment protocol. We will monitor her response to the medications and make further adjustments as needed. Dictated by... Adalberto Pisano M.D. IAA/bzg TD: 03/31/2017 12:17 JOB #: [id number] [facility] PROGRESS NOTES Page 1 of 1 X Adalberto Pisano MD PROGRESS NOTE
--- NOTE | ~2017-03-25 | DS ---
Unit #: [id number] #: [id number] Patient: PRETTY CLOUD [id number] [facility] [address] [place] [address] [id number] I MR#: [id number] NAME: PRETTY CLOUD. ROOM: P210 Age: 26 Sex: F Admission Date: 03/25/2017 : 1990 Discharge Date: 03/31/2017 Attending Physician: Adalberto Pisano M.D. Primary Care Physician: Generic Doctor Not In System DISCHARGE SUMMARY IDENTIFICATION DATA Ms. Cloud is a 26-year-old single female who is a resident of [place], [place], and is known to us from previous encounter and was self-referred to the hospital on a voluntary basis. DISCHARGE DIAGNOSES PSYCHIATRIC: Alcohol dependence, moderate, in acute withdrawal. Alcohol-induced mood disorder. MEDICAL: None. STRESSORS: Moderate psychosocial stressors. HISTORY OF PRESENT ILLNESS Same as in initial psychiatric evaluation. PAST PSYCHIATRIC HISTORY Same as in initial psychiatric evaluation. PAST MEDICAL HISTORY Same as in initial psychiatric evaluation. HOSPITAL COURSE The patient [facility] and was oriented to the hospital environment. Routine p.r.n. medications were initiated, and she was started back on her home medications and alcohol detox protocol was initiated, and she was closely monitored. She was initially seen to be anxious, withdrawn, and rather seclusive to herself though was polite, pleasant, and cooperative with treatment recommendations and was able to come out of the detox without any complications. However, she was complaining of persistent anxiety. Medications were adjusted followed by which it was decided that she will be discharged home. We will continue treatment on outpatient basis. DISCHARGE MEDICATIONS 1. Prozac 20 mg a day for depression. 2. Vistaril 50 mg p.o. p.r.n. q. 4 hours for anxiety. 3. Trazodone 100 mg at bedtime for sleep. CONDITION AT DISCHARGE Stable. PROGNOSIS Fair. Unit #: [id number] #: [id number] Patient: PRETTY CLOUD Dictated by... Adalberto Pisano M.D. IAA/bzg TD: 04/01/2017 10:55 JOB #: [id number] DISCHARGE SUMMARY Page 1 of 1 X Adalberto Pisano MD DISCHARGE SUMMARY
--- NOTE | ~2017-03-25 | PN ---
Unit #: [id number] #: [id number] Patient: PRETTY CLOUD [id number] [facility] [address] [place] [address] [id number] I MR#: [id number] NAME: PRETTY CLOUD ROOM: P210 Age: 26 Sex: F Admission Date: 03/25/2017 : 1990 Attending Physician: Adalberto Pisano M.D. Admitting Physician: Adalberto Pisano M.D. Primary Care Physician: Generic Doctor Not In System [facility] PROGRESS NOTES DATE 03/26/2017 DISCUSSION Ms. Cloud is a 26-year-old female with alcohol dependence and mood disorder who was seen today and chart was reviewed and case was discussed with the staff. She was seen to be anxious, withdrawn, rather seclusive to herself. Meanwhile, she has been cooperative with treatment recommendations and has been taking medications and tolerating them fairly well with no reported side effects. MENTAL STATUS EXAMINATION Young female who was casually dressed with fair personal hygiene and appears to be in no acute distress or discomfort. She was awake and alert on interaction with intact orientation. Her mood was anxious with congruent affect. She denies any suicidal or homicidal ideations. Her insight and judgement remains slightly impaired. TREATMENT PLAN 1. Will continue on current medications and treatment protocol. Will monitor her response to the medications and make further adjustments as needed. 2. Will continue to follow up. Dictated by... Enrique Cleaning/mario TD: 03/26/2017 17:38 JOB #: [id number] Unit #: [id number] #: [id number] Patient: PRETTY CLOUD [facility] PROGRESS NOT[facility] Page 1 of 1 X Adalberto Pisano MD PROGRESS NOTE
[2017-03-26 09:47] LABS: BASOPHIL# 0.1 X10e3 (0-0.3); BASOPHIL% 1.1 % (0-2.5); EOSINOPHIL# 0.2 X10e3 (0-0.7); EOSINOPHIL% 3.1 % (0.0-7.0); HEMATOCRIT 41.9 % (35.0-45.0); LYMPHOCYTE# 1.6 X10e3 (1.0-3.5); LYMPHOCYTE% 28.3 % (17.0-45.0); MEAN CELL VOLUME 94.9 FL (83-96); MEAN CORPUSCULAR HEMOGLOBIN 31.8 PG (28-34); MEAN CORPUSCULAR HGB CONC 33.5 g/dL (30-36); MEAN PLATELET VOLUME 8.9 FL (6.5-11.5); MONOCYTE# 0.3 X10e3 (0-1.0); MONOCYTE% 5.5 % (3.0-12.0); NEUTROPHIL# 3.5 X10e3 (1.5-7.1); PLATELET COUNT 278 X10e3 (140-420); RED BLOOD COUNT 4.41 X10e (3.90-5.30); RED CELL DISTRIBUTION WIDTH 13.9 % (11.0-15.5); WHITE BLOOD COUNT 5.6 X10e3 (4.0-10.5)
[2017-03-26 09:48] LABS: DIFF IND NO
[2017-03-26 10:19] LABS: URINE APPEARANCE CLEAR; URINE BILIRUBIN NEG (NEG); URINE BLOOD NEG (NEG); URINE COLOR YELLOW; URINE GLUCOSE NEG (NEG); URINE KETONE 2+ (NEG); URINE LEUKOCYTE ESTERASE TRACE (NEG); URINE NITRATE NEG (NEG); URINE PH 8.5 (5-8); URINE PROTEIN 1+ (NEG); URINE SPECIFIC GRAVITY 1.023 (1.003-1.035); URINE UROBILINOGEN 0.2 MG/DL (NEG)
[2017-03-26 10:21] LABS: ALBUMIN SERUM 4.7 g/dL (3.5-5.0); BILIRUBIN,TOTAL 1.2 mg/dL (0.2-2.0); BUN/CREATININE RATIO 14.44; CREATININE SERUM 0.9 mg/dL (0.6-1.4); GLOM FILT RATE Estimated 88.3 mL/min (>60); POTASSIUM 3.9 mmol/L (3.5-5.1)
[2017-03-26 10:42] LABS: AMPHETAMINE NEG (NEG); BARBITURATES NEG (NEG); BENZODIAZEPINES NEG (NEG); COCAINE NEG (NEG); MARIJUANA POS (NEG); OPIATES NEG (NEG); TRICYCLIC ANTIDEPRESSANTS NEG (NEG); U METHADONE NEG (NEG)
[2017-03-26 11:13] LABS: URINE MUCUS PRESENT; URINE SQUAMOUS EPITHELIAL CELL FEW /[HPF]
[2017-03-26 11:14] LABS: URBCS1 AUWI 0-2 /[HPF] (0-2); UWBCS1 AUWI 0-2 (0-5)
[2017-03-26 11:15] LABS: URINE BACTERIA AUWI 1+ (NEGATIVE)
== END 2017-03-31 16:09 | DRG 897 ==
LOC: P2S 08:53
PROVIDERS: Psychiatry & Neurology Psychiatry
PROC: HZ2ZZZZ Detoxification Services for Substance Abuse Treatment (ICD-10-PCS; principal; 2017-03-25)
DX: F10.230 Alcohol dependence with withdrawal, uncomplicated (principal); R45.851 Suicidal ideations; F10.24 Alcohol dependence with alcohol-induced mood disorder
CPT/HCPCS: 80053; 80307; 81003; 85025; 86592